=== PATIENT | male | born 1930 | race Caucasian/White ===

== ENCOUNTER 2016-06-22 15:36 | Emergency (ER) | payer MEDICARE, OTHER ==
[2016-06-22 16:45] VITALS: TEMP 98.3
--- NOTE | 2016-06-22 16:57 | RAD ---
EXAM DESCRIPTION: XR ABDOMEN 2 VIEWS SUPINE ERECT CLINICAL HISTORY: constipation, stool incontinence COMPARISON: None. FINDINGS: Frontal view of the chest and supine and upright images of the abdomen were submitted. Cardiac silhouette is within normal limits. Curvilinear contour at the lower mediastinum could be secondary to a tortuous aorta. Recommend followup. Linear opacity in the left lower lung may represent scar versus subsegmental atelectasis. There is no focal parenchymal or pleural disease. There is no free air in the abdomen. Moderate amount of stools within the colon without bowel obstruction or distension. There are degenerative changes and scoliosis of the lumbar spine. Calcifications within the pelvis may represent phleboliths. IMPRESSION: Curvilinear contour at the lower mediastinum could be secondary to a tortuous aorta. Recommend followup. Moderate amount of stools within the colon without bowel obstruction or distension. Electronically signed by: Harris Kelsey 06/22/2016 16:56
[2016-06-22] MEDS ORDERED: SODIUM PHOS/BIPHOS ENEMA ADULT 133 ML BTTL PR ONE (17:05)
[2016-06-22 18:12] VITALS: BP 154/82; O2SAT 96
--- NOTE | 2016-06-22 18:12 | ED.PDOC ---
History of Present Illness - General Chief Complaint: General Stated Complaint: no bm in 3days Time Seen by Provider: 06/22/16 15:50 Source: patient, RN notes reviewed, Vital Signs reviewed, family Exam Limitations: no limitations Additional Information: This 85 y/o male has been unable to have a bowel movement for 3 days. He feels very backed up. He feels hard stool at the anus but is unable to pass it. He denies any abdominal pain. He has had decreased activity for the past week or so because of back pain, and he has taken some Munising for the back pain. He is taking a stool softener, but that does not seem to help. He is now having diarrhea come out around the hard stool. - History of Present Illness Timing/Duration: other - 3 days Severity: moderate, severe Improving Factors: nothing Worsening Factors: nothing Allergies/Adverse Reactions: Allergies Aspirin Adverse Reaction (Verified 06/18/16 12:39) Other Causes increase in asthma sx's Home Medications: Ambulatory Orders Acetaminophen W/ Codeine [Tylenol W/ CODEINE #3] 1 ea PO TID PRN #20 06/18/16 Albuterol Inhaler [Ventolin Hfa Inhaler] 1 puff INH QID PRN 06/18/16 Carisoprodol [Soma] 350 mg PO BID #20 tab 06/18/16 Tamsulosin [Flomax] 0.4 mg PO DAILY 06/18/16 Review of Systems - Review of Systems Constitutional: States: no symptoms reported EENTM: States: no symptoms reported Respiratory: States: no symptoms reported Cardiology: States: no symptoms reported Gastrointestinal/Abdominal: States: constipation Genitourinary: States: no symptoms reported Musculoskeletal: States: no symptoms reported Skin: States: no symptoms reported Neurological: States: no symptoms reported Endocrine: States: no symptoms reported Hematologic/Lymphatic: States: no symptoms reported All other Systems: Reviewed and Negative Past Medical History (General) - Patient Medical History Hx Stroke: No Hx Asthma: Yes Hx Congestive Heart Failure: No Hx Diabetes: No Hx Cancer: No Hx MRSA: No Surgical History: tonsillectomy - Vaccination History Hx Tetanus, Diphtheria Vaccination: No Hx Influenza Vaccination: No Hx Pneumococcal Vaccination: No - Social History Hx Tobacco Use: No Hx Alcohol Use: No Family Medical History - Family History Father Family History: No Known Living Status: Physical Exam - Physical Exam General Appearance: Alert, Anxious Eye Exam: bilateral normal Ears, Nose, Throat: hearing grossly normal, normal ENT inspection Respiratory: lungs clear, normal breath sounds, no respiratory distress, no accessory muscle use Cardiovascular/Chest: regular rate, rhythm, no edema, no gallop, no murmur Gastrointestinal/Abdominal: non tender, soft, no organomegaly, no pulsatile mass , abnormal bowel sounds - decreased Back Exam: normal inspection, no CVA tenderness Extremity: normal range of motion, non-tender Neurologic: alert, normal mood/affect, oriented x 3 Skin Exam: normal color, warm/dry Progress - Progress Progress: 06/22/16 18:23 Patient was given a Fleet's enema with excellent results. - EKG/XRAY/CT XRAY: abdomen - moderate stool, o/w normal Departure - Departure Clinical Impression: Constipation by delayed colonic transit Time of Disposition: 18:22 Disposition: Discharge to Home or Self Care Condition: Excellent Departure Forms: ED Discharge - Pt. Copy, Patient Portal Self Enrollment Instructions: Constipation, DI for Constipation Diet: resume usual diet Home Medications: Ambulatory Orders Acetaminophen W/ Codeine [Tylenol W/ CODEINE #3] 1 ea PO TID PRN #20 06/18/16 Albuterol Inhaler [Ventolin Hfa Inhaler] 1 puff INH QID PRN 06/18/16 Carisoprodol [Soma] 350 mg PO BID #20 tab 06/18/16 Tamsulosin [Flomax] 0.4 mg PO DAILY 06/18/16 Additional Instructions: Increase fluids, activity. Continue stool softeners. For any further severe constipation, may try Magnesium Citrate over the counter--1/4 to 1/2 bottle. Follow up with PCP if symptoms persist.
== END 2016-06-22 18:28 | disposition home or self-care (01) ==
LOC: ER 15:36
DX: K59.01 Slow transit constipation (principal); J45.909 Unspecified asthma, uncomplicated; Z88.6 Allergy status to analgesic agent; Z79.899 Other long term (current) drug therapy

== ENCOUNTER → 2016-10-04 | Outpatient (CLI) | payer MEDICARE, OTHER | END | disposition home or self-care (01) | LOC: GMAH 12:23 | PROVIDERS: ATTEND Family Medicine | DX: I48.91 Unspecified atrial fibrillation (principal) ==

== ENCOUNTER → 2016-10-21 | Outpatient (CLI) | payer MEDICARE, OTHER | LOC: RESP 14:21 | PROVIDERS: ATTEND Physician Assistant | DX: R06.02 Shortness of breath (principal); R42 Dizziness and giddiness ==

== ENCOUNTER → 2017-05-27 | Outpatient (CLI) | payer MEDICARE, OTHER | LOC: LAB.O 13:37 | PROVIDERS: ATTEND Physician Assistant | DX: R00.1 Bradycardia, unspecified (principal); I48.1 Persistent atrial fibrillation; R06.02 Shortness of breath; R42 Dizziness and giddiness ==

== ENCOUNTER → 2018-07-13 | Outpatient (CLI) | payer MEDICARE, OTHER ==
--- NOTE | 2018-07-13 15:45 | US ---
EXAM DESCRIPTION: Venous,Upper Extremity LT: ULTRASOUND. CLINICAL HISTORY: LOCALIZED EDEMA COMPARISON: None Available. TECHNIQUE: Two -dimensional and doppler sonographic evaluation of the deep venous system of the left upper extremity. FINDINGS: Doppler evaluation shows normal color flow and normal phasicity and augmentation of the left subclavian, jugular, axillary, basilic, cephalic, brachial, radial vein and ulnar vein. The left upper extremity deep veins showed normal occlusion with transducer pressure. Two-dimensional survey showed no echogenic thrombus within these veins. Diffuse subcutaneous edema. IMPRESSION: Duplex ultrasound evaluation of the left upper extremity deep venous system showing no thrombosis . Diffuse subcutaneous edema. Electronically signed by: Oz Cruz MD 07/13/2018 3:44 PM [facility]
== END ==
LOC: US 14:38
PROVIDERS: ATTEND Physician Assistant
DX: R60.0 Localized edema (principal)

== ENCOUNTER 2018-10-17 13:07 | Emergency (ER) | payer MEDICARE, OTHER ==
[2018-10-17] MEDS ORDERED: SODIUM CHLORIDE 0.9% (FLUSH) 10 ML SYG IV PRN (13:25)
[2018-10-17 13:29] VITALS: TEMP 97.6
--- NOTE | 2018-10-17 13:48 | RAD ---
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 Mild cardiomegaly. Tortuous ectatic atherosclerotic aorta. Moderate-sized hiatal hernia Lungs are hyperinflated. No pulmonary edema, alveolar consolidation or effusion No pneumothorax. No acute bony abnormality Electronically signed by: Tavon Angel MD 10/17/2018 1:45 PM CDT
[2018-10-17] MEDS ORDERED: methylPREDNISolone SODIUM SUC 125 MG/2 ML VIAL IV ONE (14:00)
[2018-10-17] MEDS ORDERED: IPRATROPIUM/ALBUTEROL 3 ML VIAL NEB ONE ×2 (14:00→14:54)
--- NOTE | 2018-10-17 14:04 | ED.PDOC ---
History of Present Illness - General Chief Complaint: Respiratory Problem Stated Complaint: Pt complains of SOB and wheezing Time Seen by Provider: 10/17/18 13:25 Source: patient, family Exam Limitations: no limitations - History of Present Illness Initial Comments: 1D SOB. H/O ASTHMA SO DID 10 ALBUTEROL INHALATIONS TODAY, DIDN'T HELP. HASN'T HAD ASTHMA EXAC REQUIRING ER VISIT EVER THAT HE RECALLS, SO THIS IS MUCH WORSE THAN NL. DENIES ANY PAIN IN CHEST OR EXTREMITIES; JUST SOB. KNOWN H/O AFIB. SIDE NOTE: 3 MOS LUE EDEMA; CARDS DID U/S, NEG FOR DVT. EDEMA SLOWLY IMPROVING. Timing/Duration: constant Severity: severe Activities at Onset: none Possible Cause: unknown cause Improving Factors: nothing Worsening Factors: nothing Associated Symptoms: wheezing Allergies/Adverse Reactions: Allergies Aspirin Adverse Reaction (Verified 10/17/18 14:21) Other Causes increase in asthma sx's Home Medications: Ambulatory Orders Albuterol Inhaler [Ventolin Hfa Inhaler] 1 puff INH QID PRN 06/18/16 Tamsulosin [Flomax] 0.4 mg PO DAILY 06/18/16 Alprazolam 0.25 mg PO DAILY 10/17/18 Apixaban [Eliquis] 5 mg PO BID 10/17/18 Methylprednisolone [Medrol Dose Kvng] 4 mg PO DAILY #1 tab 10/17/18 Review of Systems - Review of Systems Constitutional: Denies: diaphoresis, fever EENTM: Denies: ear pain, nose congestion, throat swelling Respiratory: States: short of breath - IT'S MORE DIFFICULT TO EXHALE THAN INHALE. , wheezing. Denies: cough, orthopnea, stridor Cardiology: Denies: chest pain, palpitations Gastrointestinal/Abdominal: States: no symptoms reported Genitourinary: States: no symptoms reported Musculoskeletal: States: no symptoms reported Skin: States: no symptoms reported Neurological: States: no symptoms reported Endocrine: States: no symptoms reported Hematologic/Lymphatic: States: no symptoms reported All other Systems: Reviewed and Negative Past Medical History (General) - Patient Medical History Hx Stroke: No Hx Asthma: Yes Hx Cardiac Disorders: Yes - Afib Hx Congestive Heart Failure: No Hx Diabetes: No Hx Cancer: No Hx MRSA: No Surgical History: pacemaker - Vaccination History Hx Tetanus, Diphtheria Vaccination: No Hx Influenza Vaccination: No Hx Pneumococcal Vaccination: Yes - Social History Hx Tobacco Use: No Hx Alcohol Use: Yes - rarely Hx Substance Use: No Hx Substance Use Treatment: No Hx Depression: No - Female History Patient is a Female of Child Bearing Age (10 -59 yrs old): No Patient : No Family Medical History - Family History Father Family History: No Known Living Status: Hx Family Diabetes: Yes Mother Living Status: Hx Family Cancer: Yes Physical Exam - Physical Exam General Appearance: Alert, Obvious distress Eyes, Ears, Nose, Throat Exam: PERRL/EOMI, normal ENT inspection, TMs normal, pharynx normal Neck: non-tender, full range of motion, supple, normal inspection Respiratory: chest non-tender, no accessory muscle use, wheezing - BL EXPIRATORY Cardiovascular/Chest: normal peripheral pulses, no JVD, no murmur, irregularly irregular Peripheral Pulses: radial,right: 2+, radial,left: 2+ Gastrointestinal/Abdominal: normal bowel sounds, non tender, soft Extremity: normal range of motion, non-tender, normal inspection, no pedal edema, no calf tenderness Neurologic: no motor/sensory deficits, alert, normal mood/affect, oriented x 3 Skin Exam: normal color, warm/dry Lymphatic: no adenopathy Progress - Progress Progress: 10/17/18 14:54 PT STATES DYSPNEA COMPLETELY RESOLVED W/ DUONEB AND STEROIDS. STILL MILD WHEEZE ON EXAM SO I AM GIVING 2ND DUONEB TX. PT WAS NEVER HYPOXIC. NO EVIDENCE FOR IFXN (NO URI SX, CXR CLEAR), THUS NO ABX INDICATED. SAFE FOR DC HOME ON MEDROL DOSE PACK. W/U NEG FOR IFXN OR OTHER CONCERNS: CXR, BNP, CBC, CMP. EKG SHOWS KNOWN AFIB. NO ACUTE S-T CHANGES. 10/17/18 14:56 10/17/18 14:59 Departure - Departure Clinical Impression: Acute respiratory distress Asthma with exacerbation Qualifiers: Asthma severity: unspecified severity Asthma persistence: unspecified Qualified Code(s): J45.901 - Unspecified asthma with (acute) exacerbation Disposition: Discharge to Home or Self Care Condition: Good Departure Forms: ED Discharge - Pt. Copy, Patient Portal Self Enrollment Instructions: DI for Asthma -- Adult Diet: resume usual diet Activity: increase activity as tolerated Referrals: Jostin Solano MD [Primary Care Provider] - 1-2 Weeks Prescriptions: Methylprednisolone [Medrol Dose Kvng] 4 mg PO DAILY #1 tab Home Medications: Ambulatory Orders Albuterol Inhaler [Ventolin Hfa Inhaler] 1 puff INH QID PRN 06/18/16 Tamsulosin [Flomax] 0.4 mg PO DAILY 06/18/16 Alprazolam 0.25 mg PO DAILY 10/17/18 Apixaban [Eliquis] 5 mg PO BID 10/17/18 Methylprednisolone [Medrol Dose Kvng] 4 mg PO DAILY #1 tab 10/17/18
[2018-10-17 15:39] VITALS: BP 139/91; O2SAT 100
== END 2018-10-17 15:30 | disposition home or self-care (01) ==
LOC: ER 13:07
DX: J45.901 Unspecified asthma with (acute) exacerbation (principal); R06.03 Acute respiratory distress; I48.91 Unspecified atrial fibrillation; Z95.0 Presence of cardiac pacemaker; Z79.899 Other long term (current) drug therapy; Z88.6 Allergy status to analgesic agent
CPT/HCPCS: 71045; 80053; 83880; 85025; 93005; 94640; 94760; J2930; J7620

== ENCOUNTER → 2020-05-27 | Outpatient (CLI) | payer MEDICARE, OTHER | LOC: GMA MATASK 16:58 | PROVIDERS: ATTEND Family Medicine | DX: I48.91 Unspecified atrial fibrillation (principal); Z12.5 Encounter for screening for malignant neoplasm of prostate | CPT/HCPCS: 84443; 84550; G0103 ==